=== PATIENT | female | born 1990 | race Caucasian/White ===

== ENCOUNTER 2018-07-12 02:28 | Outpatient (CLI) | payer OTHER ==
[~2018-07-12] VITALS: Ht 165.1 cm; Wt 69.5 kg
[2018-07-12 02:37] VITALS: BP 107/59; PULSE 61; TEMP 98.6
[2018-07-12] MEDS ORDERED: PRENATAL MVI (02:41)
[2018-07-12 03:00] VITALS: BP 104/67; PULSE 61
[2018-07-12 03:30] VITALS: BP 107/68; PULSE 54
== END 2018-07-12 05:15 | disposition home or self-care (01) ==
LOC: LDRO 02:28
DX: O62.9 Abnormality of forces of labor, unspecified (principal); Z3A.40 40 weeks gestation of pregnancy

== ENCOUNTER 2018-07-12 16:02 | Outpatient (CLI) | payer OTHER ==
[~2018-07-12] VITALS: Ht 165.1 cm; Wt 68.9 kg
[~2018-07-12 16:02] MED LIST: PRENATAL MVI
[2018-07-12 16:28] VITALS: BP 105/68; PULSE 76; TEMP 97.8
[2018-07-12 17:30] VITALS: BP 131/82; PULSE 80
[2018-07-12 18:14] VITALS: BP 116/71; PULSE 72
[2018-07-12 18:46] VITALS: BP 126/75; PULSE 63
== END 2018-07-12 18:55 | disposition home or self-care (01) ==
LOC: LDRO 16:02
DX: O62.9 Abnormality of forces of labor, unspecified (principal); Z3A.40 40 weeks gestation of pregnancy

== ENCOUNTER 2018-07-13 03:08 | Inpatient (IN) | payer OTHER ==
[2018-07-13] VITALS (13 sets, daily range): BP systolic 103–132; BP diastolic 50–78; PULSE 60–96; TEMP 97.8–99.2
[~2018-07-13] VITALS: Ht 162.6 cm; Wt 69.1 kg
[2018-07-13 04:57] LABS: BASO % 0.2 % (0.0-2.0); EOS % 0.1 % (0-4.0); GRAN % 81.6 % (42.2-75.2); HEMATOCRIT 41.8 % (37.0-47.0); HEMOGLOBIN 13.9 g/dl (12.5-16.0); LYMPH # 1.7 (1.2-3.4); LYMPH % 12.2 % (20.0-51.0); MEAN CELL VOLUME 91 fl (80.0-100.0); MEAN CORPUSCULAR HEMOGLOBIN 30 pg (27.0-31.0); MEAN CORPUSCULAR HGB CONC 33 g/dl (33.0-37.0); MEAN PLATELET VOLUME 10.7 fl (7.4-10.4); MONO # 0.7 (0.1-0.6); MONO % 5.5 % (1.7-9.3); PLATELET COUNT 208 K/mm3 (130-400); REDCELL DISTRIBUTION WIDTH-CV 14.6 % (11.5-14.5)
[2018-07-14 07:52] VITALS: BP 91/56; PULSE 69; TEMP 98.1
[2018-07-14] MEDS ORDERED: MOTRIN 600600 MG/TAB PO (09:54)
== END 2018-07-14 13:00 | disposition home or self-care (01) | DRG 807 ==
LOC: LDRO 03:08 → OB 03:20 → LDR 03:20 → OB 07:00
PROVIDERS: Obstetrics & Gynecology
PROC: 10E0XZZ Delivery of Products of Conception, External Approach (ICD-10-PCS; principal; 2018-07-13)
DX: O99.344 Other mental disorders complicating childbirth (principal); Z37.0 Single live birth; F41.9 Anxiety disorder, unspecified; Z3A.40 40 weeks gestation of pregnancy
CPT/HCPCS: J2590; J7120

== ENCOUNTER 2023-12-26 02:22 | Inpatient (IN) | payer BC, MEDICAID ==
[~2023-12-26 02:22] MED LIST changes: +MOTRIN 600600 MG/TAB PO
== END 2023-12-27 14:18 | disposition home or self-care (01) | DRG 807 ==
LOC: LDRO 02:22 → OB 02:30
PROVIDERS: ADMIT Obstetrics & Gynecology
PROC: 10E0XZZ Delivery of Products of Conception, External Approach (ICD-10-PCS; principal; 2023-12-26)
PROC: 0KQM0ZZ Repair Perineum Muscle, Open Approach (ICD-10-PCS; 2023-12-26)
DX: O99.344 Other mental disorders complicating childbirth (principal); Z37.0 Single live birth; Z3A.39 39 weeks gestation of pregnancy; O70.1 Second degree perineal laceration during delivery; O69.81X0 Labor and delivery complicated by cord around neck, without compression, not applicable or unspecified; F41.9 Anxiety disorder, unspecified